=== PATIENT | male | born 1985 | race African-American/Black ===

== ENCOUNTER 2023-10-13 12:59 | Emergency (ER) | payer MEDICAID ==
[~2023-10-13] VITALS: Ht 162.6 cm; Wt 77.0 kg
[~2023-10-13 12:59] MED LIST: KEPP500 PO; KEPPSOL
[2023-10-13 13:03] VITALS: O2SAT 100
[2023-10-13] MEDS ORDERED: LEVETIRACETAM 1000MG PREMIX 100 ML IV ONE (15:00)
[2023-10-13 16:00] VITALS: TEMP 97.8
[2023-10-13 16:00] LABS: BASOPHILS % 0.7 % (0.0-2.0); EOSINOPHILS % 0.3 % (0.0-5.0); HEMATOCRIT. 40.4 % (42.0-52.0); HEMOGLOBIN. 12.7 g/dL (14.0-18.0); LYMPHOCYTES % 14.1 % (20.0-50.0); MEAN CORPUSCULAR HEMOGLOBIN 28.1 pg (28.0-32.0); MEAN CORPUSCULAR HGB CONC 31.5 g/dL (31.0-37.0); MEAN CORPUSCULAR VOLUME 89.2 fL (80.0-94.0); MEAN PLATELET VOLUME 7.5 fl (7.4-10.4); MONOCYTES % 4.6 % (2.0-8.0); NEUTROPHILS % 80.3 % (40.0-76.0); PLATELET 261 x1000/uL (130-400); RED BLOOD CELL COUNT 4.53 mill/uL (4.7-6.1); WHITE BLOOD COUNT 8.8 x1000/uL (4.5-11.0)
[2023-10-13 16:06] LABS: CHLORIDE 108 mEq/L (98-107); INDEX HEMOLYSI 1 (1-3); INDEX ICTERIC 1 (1-4); INDEX LIPEMIC 1 (1-3); SODIUM 140 mEq/L (136-145)
[2023-10-13 16:15] LABS: ALANINE AMINOTRANSFERASE 34 IU/L (13-61); ALBUMIN 4.3 g/dL (3.4-5.0); ASPARTATE AMINOTRANSFERASE 22 IU/L (15-37); BILIRUBIN TOTAL 0.3 mg/dL (0.1-1.0); CALCIUM 9.9 mg/dL (8.5-10.1); CARBON DIOXIDE 21 mEq/L (21-32); ETHANOL BLOOD < 10 mg/dL (<10); GLUCOSE 110 mg/dL (70-105); PROTEIN TOTAL 8.4 g/dL (6.0-8.3); UREA NITROGEN BLOOD 13 mg/dL (7-21)
[2023-10-13 19:58] VITALS: BP 135/68; PULSE 82; RESP 20
== END 2023-10-13 20:03 | disposition home or self-care (01) ==
LOC: ER 12:59
DX: G40.909 Epilepsy, unspecified, not intractable, without status epilepticus (principal)
CPT/HCPCS: 80053; 80320; 85025; 36415; 96365; 96366; 99284; J1953; G0480